=== PATIENT | male | born 1980 | race Caucasian/White ===

== ENCOUNTER 2017-08-16 14:08 | Emergency (ER) | END 2017-08-16 15:47 | disposition home or self-care (01) ==

== ENCOUNTER 2017-08-19 22:01 | Emergency (ER) | END 2017-08-20 00:19 | disposition home or self-care (01) ==

== ENCOUNTER 2017-09-01 02:53 | Emergency (ER) | END 2017-09-01 03:47 | disposition home or self-care (01) ==